=== PATIENT | male | born 1965 | race Caucasian/White ===

== ENCOUNTER 2017-04-05 11:16 | Day surgery (SDC) | payer SELFPAY ==
[2016-04-16 13:02] VITALS: BMI 28.2
[2017-04-05] MEDS ORDERED: Lactated Ringer's 500 ML IV ONE (12:03)
[2017-04-05] MEDS ORDERED: Propofol 10 mg/ml Inj (20 ML) ONE (12:25)
[2017-04-05] MEDS ORDERED: Lidocaine 2% MPF (5 ml) Inj ONE (12:25)
[2017-04-05] MEDS ORDERED: Midazolam 2 MG/2 ML VIAL ONE (12:25)
[2017-04-05 12:52] VITALS: TEMP 97; O2SAT 100
[2017-04-05 13:13] VITALS: BP 128/86; PULSE 70; RESP 18
== END 2017-04-05 13:20 | disposition home or self-care (01) ==
LOC: H.ENDO 11:16
PROVIDERS: ATTEND Internal Medicine Gastroenterology
DX: Z12.11 Encounter for screening for malignant neoplasm of colon (principal); K64.8 Other hemorrhoids
CPT/HCPCS: 45378; J2250; J2704; J7120

== ENCOUNTER 2017-05-03 16:02 | Emergency (ER) | payer OTHER, SELFPAY ==
[2017-05-03 16:02] VITALS: BMI 28.2
[2017-05-03 16:33] VITALS: BP 165/105; PULSE 77; RESP 18; TEMP 97; O2SAT 98
--- NOTE | 2017-05-03 17:29 | ED PDOC ---
HPI: Abdomen Time Seen by Provider: 05/03/17 16:52 Chief Complaint (Nursing): Abdominal Pain Chief Complaint (Provider): Abdominal Pain History Per: Patient History/Exam Limitations: no limitations Onset/Duration Of Symptoms: Days (x3 days) Current Symptoms Are (Timing): Still Present Additional Complaint(s): 51 y/o male presents to the emergency department with a complaint of watery diarrhea that began three days ago, 04/30/2017. Associated with dizziness, abdominal pain, and burning sensation after while urinating. Patient also reports that his fingers always hurt and swell in the morning making it hard for him to move them around. Denies fever, vomiting, blood in urine, or any recent travels. PMD: Dr. Lan Herrera MD Past Medical History Reviewed: Historical Data, Nursing Documentation, Vital Signs Vital Signs: Last Vital Signs Temp 97 F L 05/03/17 16:31 Pulse 77 05/03/17 16:31 Resp 18 05/03/17 16:31 BP 165/105 H 05/03/17 16:31 Pulse Ox 98 05/03/17 17:32 - Medical History PMH: HTN Denies: Chronic Kidney Disease - Surgical History Surgical History: No Surg Hx - Family History Family History: States: Unknown Family Hx - Immunization History Hx Tetanus Toxoid Vaccination: No Hx Influenza Vaccination: No Hx Pneumococcal Vaccination: No - Home Medications Home Medications: Ambulatory Orders Medication Instructions Recorded Lisinopril [Zestril] 10 mg PO DAILY 04/05/17 Meloxicam [Mobic] 15 mg PO DAILY 04/05/17 Omeprazole 40 mg PO DAILY 04/05/17 - Allergies Allergies/Adverse Reactions: Allergies Allergy/AdvReac Type Severity Reaction Status Date / Time Fish Containing Products Allergy VOMITING Verified 04/16/16 13:19 seafood Allergy VOMITING Uncoded 04/16/16 13:08 Review of Systems ROS Statement: Except As Marked, All Systems Reviewed And Found Negative Constitutional: Negative for: Fever Gastrointestinal: Positive for: Abdominal Pain, Diarrhea. Negative for: Vomiting Genitourinary Male: Positive for: Dysuria. Negative for: Hematuria Neurological: Positive for: Dizziness Physical Exam - Reviewed Nursing Documentation Reviewed: Yes Vital Signs Reviewed: Yes - Physical Exam Appears: Positive for: Non-toxic, No Acute Distress Head Exam: Positive for: ATRAUMATIC, NORMAL INSPECTION, NORMOCEPHALIC Skin: Positive for: Normal Color, Warm, Dry Cardiovascular/Chest: Positive for: Regular Rate, Rhythm. Negative for: Murmur Respiratory: Positive for: Normal Breath Sounds. Negative for: Accessory Muscle Use, Respiratory Distress Gastrointestinal/Abdominal: Positive for: Soft, Tenderness (Diffuse tenderness) . Negative for: Normal Exam, Guarding, Rebound Extremity: Positive for: Normal ROM. Negative for: Pedal Edema Neurologic/Psych: Positive for: Alert, Oriented (x3) - Laboratory Results Result Diagrams: 05/03/17 18:03 05/03/17 18:03 - ECG O2 Sat by Pulse Oximetry: 98 (RA) Pulse Ox Interpretation: Normal Medical Decision Making Medical Decision Making: Time: 1702 Initial impression: Diarrhea and abdominal pain Initial plan: --Abd & Pelvis IV Contrast CT --EKG --CMP --Urine DIP --CBC w/ diff --Sodium Chloride 1L IV --Stool Culture --Urinalysis --Reevaluation Scribe Attestation: Documented by Jailene Coy, acting as a scribe for Elsy Kirk MD. Provider Scribe Attestation: All medical record entries made by the Scribe were at my direction and personally dictated by me. I have reviewed the chart and agree that the record accurately reflects my personal performance of the history, physical exam, medical decision making, and the department course for this patient. I have also personally directed, reviewed, and agree with the discharge instructions and disposition. Disposition - Disposition Disposition: Transfer of Care (To Dr. Denise) Disposition Time: 19:00 Condition: STABLE Forms: [employer] (Bengali)
[2017-05-03] MEDS: Sodium Chloride 0.9% 1,000 ML IV STA (18:03)
[2017-05-03 18:12] LABS: BASO % 0.6 % (0.0-2.0); EOS # 0.4 K/uL (0.0-0.7); EOS % 4.5 % (0.0-4.0); HEMATOCRIT 46.5 % (35.0-51.0); LYMPH # 2.4 K/uL (1.0-4.3); LYMPH % 29.9 % (20.0-40.0); MEAN CORPUSCULAR HEMOGLOBIN 28.6 pg (27.0-31.0); MEAN CORPUSCULAR HGB CONC 32.9 g/dL (33.0-37.0); MEAN PLATELET VOLUME 9.8 fl (7.2-11.7); MONO # 0.6 K/uL (0.0-0.8); MONO % 7.3 % (0.0-10.0); NEUT # 4.7 K/uL (1.8-7.0); NEUT % 57.7 % (50.0-75.0); NRBC % 0.1 % (0.0-0.0); RED CELL DISTRIBUTION WIDTH 12.9 % (11.5-14.5); WHITE BLOOD COUNT 8.1 K/uL (4.8-10.8)
[2017-05-03 18:18] LABS: RBC URINE 3 /hpf (0-3); URINE BACTERIA RARE (<OCC); URINE BILIRUBIN NEGATIVE (NEGATIVE); URINE BLOOD NEGATIVE (NEGATIVE); URINE COLOR YELLOW (YELLOW); URINE GLUCOSE (UA) NEG (Normal); URINE KETONE NEGATIVE (NEGATIVE); URINE LEUKOCYTE ESTERASE NEG Leu/uL (Negative); URINE PROTEIN NEGATIVE (NEGATIVE); URINE UROBILINOGEN 0.2-1.0 mg/dL (0.2-1.0); WBC URINE < 1 /hpf (0-5)
[2017-05-03 18:23] LABS: ALKALINE PHOSPHATASE 83 U/L (38-126); ALT/SGPT 54 U/L (21-72); AST/SGOT 38 U/L (17-59); BILIRUBIN,TOTAL 0.5 mg/dl (0.2-1.3); BLOOD UREA NITROGEN 11 mg/dl (9-20); CALCIUM 9.3 mg/dL (8.4-10.2); CARBON DIOXIDE 28 mmol/L (22-30); CHLORIDE 104 mmol/L (98-107); GFR AFRICAN-AMERICAN > 60; GLUCOSE,RANDOM 90 mg/dL (75-110); POTASSIUM 4.4 MMOL/L (3.6-5.0); SODIUM 141 mmol/l (132-148); TOTAL PROTEIN 8.8 G/DL (6.3-8.2)
[2017-05-03 18:27] LABS: ALB/GLOB RATIO 1.1 (1.0-2.1)
[2017-05-03] MEDS ORDERED: Iohexol 300 100 ML IJ ONE (19:00)
[2017-05-03] MEDS ORDERED: Sodium Chloride 0.9% 50 ML IV ONE (19:00)
--- NOTE | 2017-05-03 19:34 | ED PDOC ---
- Laboratory Results Result Diagrams: 05/03/17 18:03 05/03/17 18:03 - ECG O2 Sat by Pulse Oximetry: 98 (RA) Pulse Ox Interpretation: Normal Medical Decision Making Medical Decision Making: Time: 1899 --Patient was endorsed from Dr. Kirk to me. --Pending CT scan and reevaluation. Time: 2021 --Abd/Pelvis CT FINDINGS: Lower thorax: No acute findings. ABDOMEN: Liver: Fatty infiltration. Too small to characterize lesion. Gallbladder and bile ducts: No calcified stones. No ductal dilation. Pancreas: No ductal dilation. No mass. Spleen: No splenomegaly. Adrenals: No mass. Kidneys and ureters: Too small to characterize lesion within RIGHT kidney. No hydronephrosis. Stomach and bowel: Segmental areas of apparent [id number] mural thickening of large bowel with few areas of sparing. No associated inflammatory stranding. No obstruction. Appendix: Normal caliber. No definite inflammation. PELVIS: Bladder: Borderline bladder wall thickening, up to 5 mm. Incomplete distention, limiting evaluation. Reproductive: Unremarkable as visualized. ABDOMEN and PELVIS: Intraperitoneal space: No significant fluid collection. No free air. Bones/joints: Degenerative changes of spine. No acute fracture. Soft tissues: Small inguinal hernias containing fat. Tiny umbilical hernia containing fat. Vasculature: Minimal atherosclerotic disease. No aneurysm. Lymph nodes: Several subcentimeter/few borderline enlarged short axis lymph nodes within pelvis. IMPRESSION: 1. Probable mild colitis. Consider inflammatory or infectious etiologies. 2. Mild cystitis vs underdistention. Correlate with urinalysis. 3. Incidental/non-acute findings are described above. Time: 2053 --Urinalysis is normal. Discharge with antibiotics for mild colitis and outpatient follow up with GI. Upon provider reevaluation patient is feeling better, is medically stable, and requires no further treatment in the ED at this time. Patient will be discharged home with Rx for Cipro 500 mg and Flagyl 500 mg. Counseling was provided and all questions were answered regarding diagnosis and need for follow up with Dr. Dany Jerome MD. There is agreement to discharge plan. Return if symptoms persist or worsen. Clinical Impression: abdominal Pain Scribe Attestation: Documented by Jailene Coy, acting as a scribe for Ric Denise MD. Provider Scribe Attestation: All medical record entries made by the Scribe were at my direction and personally dictated by me. I have reviewed the chart and agree that the record accurately reflects my personal performance of the history, physical exam, medical decision making, and the department course for this patient. I have also personally directed, reviewed, and agree with the discharge instructions and disposition. Disposition Counseled Patient/Family Regarding: Studies Performed, Diagnosis, Need For Followup - Clinical Impression Clinical Impression: Abdominal pain - POA Present On Arrival: None - Disposition Referrals: [facility] [Outside] [facility] [Outside] Justus CLAROS,MD Dany [Medical Doctor] - Disposition: Routine/Home Disposition Time: 20:54 Condition: IMPROVED Additional Instructions: follow up with your primary doctor/GI doctor in 1-2 days return to the ED with any worsening or concerning symptoms. Prescriptions: Ciprofloxacin HCl [Cipro] 500 mg PO BID #20 tab Metronidazole [Flagyl] 500 mg PO TID #30 tablet Instructions: Abdominal Pain (ED) Forms: [facility] (Luxembourger), [facility] ED School/Work Excuse
--- NOTE | 2017-05-03 20:22 | CT ---
EXAM: CT Abdomen and Pelvis With Intravenous Contrast CLINICAL HISTORY: 51 years old, male; Pain and signs and symptoms; Other: Diarrhea; Abdominal pain; Generalized; Additional info: Abd pain, diarrhea. Sent phy. Doc. TECHNIQUE: Axial computed tomography images of the abdomen and pelvis with intravenous contrast. All CT scans at this facility use one or more dose reduction techniques, viz.: automated exposure control; ma/kV adjustment per patient size (including targeted exams where dose is matched to indication; i.e. head); or iterative reconstruction technique. Coronal and sagittal reformatted images were created and reviewed. CONTRAST: 95 mL of [id number] administered intravenously. COMPARISON: No relevant prior studies available. FINDINGS: Lower thorax: No acute findings. ABDOMEN: Liver: Fatty infiltration. Too small to characterize lesion. Gallbladder and bile ducts: No calcified stones. No ductal dilation. Pancreas: No ductal dilation. No mass. Spleen: No splenomegaly. Adrenals: No mass. Kidneys and ureters: Too small to characterize lesion within RIGHT kidney. No hydronephrosis. Stomach and bowel: Segmental areas of apparent mdzb-qh-wusohldi mural thickening of large bowel with few areas of sparing. No associated inflammatory stranding. No obstruction. Appendix: Normal caliber. No definite inflammation. PELVIS: Bladder: Borderline bladder wall thickening, up to 5 mm. Incomplete distention, limiting evaluation. Reproductive: Unremarkable as visualized. ABDOMEN and PELVIS: Intraperitoneal space: No significant fluid collection. No free air. Bones/joints: Degenerative changes of spine. No acute fracture. Soft tissues: Small inguinal hernias containing fat. Tiny umbilical hernia containing fat. Vasculature: Minimal atherosclerotic disease. No aneurysm. Lymph nodes: Several subcentimeter/few borderline enlarged short axis lymph nodes within pelvis. IMPRESSION: 1. Probable mild colitis. Consider inflammatory or infectious etiologies. 2. Mild cystitis vs underdistention. Correlate with urinalysis. 3. Incidental/non-acute findings are described above.
--- NOTE | 2017-05-04 07:43 | CARD ---
APPROVED REPORT EKG Measurement Heart [id number] <Conclusion> Normal sinus rhythm Possible Left atrial enlargement Borderline ECG
== END 2017-05-03 21:24 | disposition home or self-care (01) ==
LOC: H.ER 16:02
DX: K52.9 Noninfective gastroenteritis and colitis, unspecified (principal); I10 Essential (primary) hypertension
CPT/HCPCS: 74177; 80053; 81003; 85025; 87045; 93005; 99282; J7040; Q9967

== ENCOUNTER 2017-10-08 21:05 | Emergency (ER) | payer SELFPAY ==
[2017-10-08 21:06] VITALS: BMI 28.2
[2017-10-08 21:12] VITALS: BP 127/92; PULSE 110; RESP 18; TEMP 99.2; O2SAT 98
--- NOTE | 2017-10-08 22:12 | ED PDOC ---
HPI: Male Pain Additional Complaint(s): 52 YO M w/ PMH of HTN, chronic leg pain presents to the ER with subjective fever , dry cough and chills over the last 3 days. States his roommate in the long term has been coughing up blood and he is concerned that he caught something from him. Has also been having chest pain on coughing which is reproducible on palpation. - States he also has been having burning with urination and having increase frequency. Denies any blood in urine but states his urine is dark in color. - Has been feeling tired for some time and has been getting worked up outpatinet. Has been also having some sore throat. PMH: GERD, Hemorrhoids, leg pain , HTN Allergy: Seafood FH: Mother : HTN SH: Sexually active with woman with inconsistent condom usage. Denies any IV drug use <Shavonne Alatorre - Last Filed: 10/09/17 03:19> <Robert Fong - Last Filed: 10/12/17 19:43> Time Seen by Provider: 10/08/17 21:18 Chief Complaint (Nursing): Male Genitourinary Supervising Attending Note - Attestation: I have personally seen and examined this patient.: Yes I have fully participated in the care of the patient.: Yes I have reviewed all pertinent clinical information, including history, physical exam and plan: Yes - Notes: Notes:: PAtient was found to be HIV + in ER, suprapubic pain and burning upon urination , found to have UTI but negative CT for pyelo, white count of 13. Will treat as outpatient, patient was given referral by HANG Rivera [facility]diomkar for the FP clinic. <Robert Fong - Last Filed: 10/12/17 19:43> Past Medical History Vital Signs: Last Vital Signs Temp 99.2 F 10/08/17 21:08 Pulse 110 H 10/08/17 21:08 Resp 18 10/08/17 21:08 BP 127/92 H 10/08/17 21:08 Pulse Ox 98 10/08/17 21:08 - Medical History PMH: HTN Denies: Chronic Kidney Disease - Family History Family History: States: Unknown Family Hx - Immunization History Hx Tetanus Toxoid Vaccination: No Hx Influenza Vaccination: No Hx Pneumococcal Vaccination: No <Shavonne Alatorre - Last Filed: 10/09/17 03:19> Vital Signs: Last Vital Signs Temp 99.2 F 10/08/17 21:08 Pulse 110 H 10/08/17 21:08 Resp 18 10/08/17 21:08 BP 127/92 H 10/08/17 21:08 Pulse Ox 98 10/09/17 03:19 <Robert Fong - Last Filed: 10/12/17 19:43> - Home Medications Home Medications: Ambulatory Orders Medication Instructions Recorded Lisinopril [Zestril] 10 mg PO DAILY 04/05/17 Meloxicam [Mobic] 15 mg PO DAILY 04/05/17 Omeprazole 40 mg PO DAILY 04/05/17 Ciprofloxacin HCl [Cipro] 500 mg PO BID #20 tab 05/03/17 Metronidazole [Flagyl] 500 mg PO TID #30 tablet 05/03/17 Ciprofloxacin HCl [Cipro] 500 mg PO BID 7 Days tablet 10/09/17 - Allergies Allergies/Adverse Reactions: Allergies Allergy/AdvReac Type Severity Reaction Status Date / Time Fish Containing Products Allergy VOMITING Verified 04/16/16 13:19 seafood Allergy VOMITING Uncoded 04/16/16 13:08 Review of Systems ROS Statement: Except As Marked, All Systems Reviewed And Found Negative <Shavonne Alatorre - Last Filed: 10/09/17 03:19> Physical Exam - Reviewed Nursing Documentation Reviewed: Yes Vital Signs Reviewed: Yes - Physical Exam Appears: Positive for: No Acute Distress Head Exam: Positive for: ATRAUMATIC, NORMAL INSPECTION Skin: Positive for: Normal Color ENT: Negative for: Pharyngeal Erythema Neck: Positive for: Normal Cardiovascular/Chest: Positive for: Regular Rate, Rhythm Respiratory: Positive for: Normal Breath Sounds. Negative for: Rales, Rhonchi, Wheezing Gastrointestinal/Abdominal: Positive for: Tenderness (suprapubic) Back: Positive for: L CVA Tenderness, R CVA Tenderness Lymphatic: Positive for: Other (cervical lymphadenopathy) <Shavonne Alatorre - Last Filed: 10/09/17 03:19> - Laboratory Results Result Diagrams: 10/08/17 22:00 10/08/17 22:00 Urine dip results: Positive for: Nitrate - ECG O2 Sat by Pulse Oximetry: 98 <Shavonne Alatorre - Last Filed: 10/09/17 03:19> - Laboratory Results Result Diagrams: 10/08/17 22:00 10/08/17 22:00 <Robert Fong - Last Filed: 10/12/17 19:43> Medical Decision Making Medical Decision Making: WBC: 13.1 UA: Shows nitrates, many bacteria HIV Rapid screen positive <Shavonne Alatorre - Last Filed: 10/09/17 03:19> Disposition - Patient ED Disposition Is Patient to be Admitted: No - Disposition Disposition: Routine/Home Disposition Time: 02:10 - POA Present On Arrival: None <Shavonne Alatorre - Last Filed: 10/09/17 03:19> <Robert Fong - Last Filed: 10/12/17 19:43> - Clinical Impression Clinical Impression: Urinary tract infection, HIV (human immunodeficiency virus infection) - Disposition Referrals: Lan Herrera MD [Family Provider] - Espinoza Hennessy MD [Staff Provider] - Condition: STABLE Additional Instructions: Patient advised importance of following up with PCP for new diagnosis of HIV. - If symptoms worsen please return to the ER. Advised to have safe sex. Prescriptions: Ciprofloxacin HCl [Cipro] 500 mg PO BID 7 Days tablet Instructions: Urinary Tract Infections in Adults, HIV/AIDS Forms: [facility] (Bhutanese) Print Language: HUNGARIAN
[2017-10-08 22:16] LABS: BASO # 0.1 K/uL (0.0-0.2); BASO % 0.8 % (0.0-2.0); EOS # 0.1 K/uL (0.0-0.7); EOS % 0.4 % (0.0-4.0); HEMOGLOBIN 13.6 g/dL (12.0-18.0); LYMPH # 2.7 K/uL (1.0-4.3); LYMPH % 20.7 % (20.0-40.0); MEAN CELL VOLUME 86.3 fl (80.0-94.0); MEAN CORPUSCULAR HEMOGLOBIN 28.9 pg (27.0-31.0); MEAN CORPUSCULAR HGB CONC 33.4 g/dL (33.0-37.0); MEAN PLATELET VOLUME 9.3 fl (7.2-11.7); MONO # 1.2 K/uL (0.0-0.8); NEUT % 69.1 % (50.0-75.0); RBC 4.71 Mil/uL (4.40-5.90); RED CELL DISTRIBUTION WIDTH 13.5 % (11.5-14.5); WHITE BLOOD COUNT 13.1 K/uL (4.8-10.8)
[2017-10-08 22:30] LABS: ALB/GLOB RATIO 1.1 (1.0-2.1); ALBUMIN 4.3 g/dL (3.5-5.0); ALT/SGPT 40 U/L (21-72); AST/SGOT 30 U/L (17-59); BLOOD UREA NITROGEN 15 mg/dl (9-20); CALCIUM 9.3 mg/dL (8.4-10.2); GFR AFRICAN-AMERICAN > 60; GFR NON-AFRICAN AMERICAN > 60
[2017-10-08 22:44] LABS: SQUAMOUS EPITHIAL < 1 /hpf (0-5); URINE BACTERIA MANY (<OCC); URINE BILIRUBIN NEGATIVE (NEGATIVE); URINE BLOOD NEGATIVE (NEGATIVE); URINE CLARITY SLIGHTY-CLOUDY (Clear); URINE COLOR YELLOW (YELLOW); URINE GLUCOSE (UA) NEG (Normal); URINE LEUKOCYTE ESTERASE MOD Leu/uL (Negative); URINE PROTEIN NEGATIVE (NEGATIVE); URINE UROBILINOGEN 0.2-1.0 mg/dL (0.2-1.0)
[2017-10-08] MEDS ORDERED: Ciprofloxacin 400mg/200ml D5W 400 MG/200 ML BAG IVPB STA (23:29)
[2017-10-08] MEDS ORDERED: Ciprofloxacin 400mg/200ml D5W 400 MG/200 ML BAG IVPB ONE (23:54)
[2017-10-09] MEDS ORDERED: Iohexol 300 100 ML IJ ONE (00:04)
[2017-10-09] MEDS ORDERED: Sodium Chloride 0.9% 100 ML ONE (00:04)
--- NOTE | 2017-10-09 01:34 | CT ---
EXAM: CT Abdomen and Pelvis With Intravenous Contrast CLINICAL HISTORY: 52 years old, male; Signs and symptoms; Fever and other: Fever/cough R/O pyelo TECHNIQUE: Axial computed tomography images of the abdomen and pelvis with intravenous contrast. All CT scans at this facility use one or more dose reduction techniques, viz.: automated exposure control; ma/kV adjustment per patient size (including targeted exams where dose is matched to indication; i.e. head); or iterative reconstruction technique. Coronal and sagittal reformatted images were created and reviewed. CONTRAST: 95 mL of omnipaque administered intravenously. COMPARISON: CT - ABD PELVIS IV CONTRAST ONLY 2017-05-03 19:18 FINDINGS: Lung bases: No acute findings. ABDOMEN: Liver: Fatty infiltration. 0.6 cm low-attenuation lesion, stable. Gallbladder and bile ducts: No calcified stones. No ductal dilation. Pancreas: No ductal dilation. No mass. Spleen: No splenomegaly. Adrenals: No mass. Kidneys and ureters: Too small to characterize lesion within RIGHT kidney. No hydronephrosis. Stomach and bowel: No definite mural thickening. No obstruction. PELVIS: Appendix: No findings to suggest acute appendicitis. Bladder: Unremarkable. Reproductive: Unremarkable as visualized. ABDOMEN and PELVIS: Intraperitoneal space: No significant fluid collection. No free air. Bones/joints: Degenerative changes of spine. No acute fracture. Soft tissues: Tiny umbilical hernia containing fat. Small inguinal hernias containing fat. Vasculature: Minimal atherosclerotic disease of aorta. No aneurysm. Lymph nodes: Few subcentimeter/borderline enlarged short axis lymph nodes within pelvis, stable. IMPRESSION: 1. No definite acute intraabdominal abnormality. 2. Incidental/non-acute findings are described above.
--- NOTE | 2017-10-09 09:29 | RAD ---
HISTORY: COMPARISON: 04/02/2015. TECHNIQUE: Chest PA and lateral FINDINGS: LINES AND TUBES: None. LUNG AND PLEURA: The lungs are well inflated and clear. There are no pleural effusions or pneumothorax. HEART AND MEDIASTINUM: The heart is not enlarged. The hilar and mediastinal contours are within normal limits. SKELETAL STRUCTURES: The bony structures are within normal limits for the patient's age. VISUALIZED UPPER ABDOMEN: Normal. OTHER FINDINGS: None. IMPRESSION: No active pulmonary disease.
== END 2017-10-09 03:14 | disposition home or self-care (01) ==
LOC: H.ER 21:05
DX: N39.0 Urinary tract infection, site not specified (principal); B20 Human immunodeficiency virus [HIV] disease; G89.29 Other chronic pain; I10 Essential (primary) hypertension; K21.9 Gastro-esophageal reflux disease without esophagitis; M79.606 Pain in leg, unspecified
CPT/HCPCS: 71046; 74177; 80053; 81003; 85025; 86703; 87086; 87181; 87390; 87804; 96374; 99284; J1885; Q9967

== ENCOUNTER 2017-10-29 12:14 | Emergency (ER) | payer SELFPAY ==
[2017-10-29 12:14] VITALS: BMI 28.2
[2017-10-29] MEDS ORDERED: Albuterol-Ipratrop 3 mg / 0.5 (3 ml) UD IH STA (12:35)
--- NOTE | 2017-10-29 12:49 | ED PDOC ---
HPI: SOB/CHF/COPD Time Seen by Provider: 10/29/17 12:22 Chief Complaint (Nursing): Cough, Cold, Congestion Chief Complaint (Provider): Cough History Per: Patient History/Exam Limitations: no limitations Current Symptoms Are (Timing): Still Present Additional Complaint(s): Pt. with cough, nasal congestion, body aches, green phlegm. Dyspnea with the cough. No weakness. No chest pain, headaches, dizziness, neck pain. No fever. Did not take any meds for it. Ongoing for 2 weeks. No abd pain. Past Medical History Reviewed: Nursing Documentation, Vital Signs Vital Signs: Last Vital Signs Temp 98 F 10/29/17 12:19 Pulse 113 H 10/29/17 12:19 Resp 16 10/29/17 12:19 BP 114/76 10/29/17 12:19 Pulse Ox 98 10/29/17 13:39 - Medical History PMH: HTN Denies: Chronic Kidney Disease - Surgical History Surgical History: No Surg Hx - Family History Family History: States: Unknown Family Hx - Living Arrangements Living Arrangements: With Family - Social History Current smoker - smoking cessation education provided: No - Immunization History Hx Tetanus Toxoid Vaccination: No Hx Influenza Vaccination: No Hx Pneumococcal Vaccination: No - Home Medications Home Medications: Ambulatory Orders Medication Instructions Recorded Lisinopril [Zestril] 10 mg PO DAILY 04/05/17 Meloxicam [Mobic] 15 mg PO DAILY 04/05/17 Omeprazole 40 mg PO DAILY 04/05/17 Ciprofloxacin HCl [Cipro] 500 mg PO BID #20 tab 05/03/17 Metronidazole [Flagyl] 500 mg PO TID #30 tablet 05/03/17 Ciprofloxacin HCl [Cipro] 500 mg PO BID 7 Days tablet 10/09/17 Albuterol Sulfate [Proair Hfa] 0.09 mg IH Q6H PRN #2 inh 10/29/17 Azithromycin [Zithromax] 250 mg PO DAILY 5 Days tab 10/29/17 Benzonatate [Tessalon Perles] 100 mg PO BID PRN 5 Days sgl 10/29/17 Ibuprofen [Motrin] 600 mg PO TID 7 Days tab 10/29/17 - Allergies Allergies/Adverse Reactions: Allergies Allergy/AdvReac Type Severity Reaction Status Date / Time Fish Containing Products Allergy VOMITING Verified 04/16/16 13:19 seafood Allergy VOMITING Uncoded 04/16/16 13:08 Review of Systems ROS Statement: Except As Marked, All Systems Reviewed And Found Negative ENT: Positive for: Nose Pain, Nose Discharge, Nose Congestion Respiratory: Positive for: Cough, Shortness of Breath, Sputum Musculoskeletal: Positive for: Other (body aches) Neurological: Negative for: Weakness, Numbness, Confusion, Headache, Dizziness Physical Exam - Reviewed Nursing Documentation Reviewed: Yes Vital Signs Reviewed: Yes - Physical Exam Appears: Positive for: Non-toxic, No Acute Distress Head Exam: Positive for: ATRAUMATIC, NORMAL INSPECTION, NORMOCEPHALIC Skin: Positive for: Normal Color, Warm, DRY Eye Exam: Positive for: EOMI, Normal appearance, PERRL ENT: Positive for: Nasal Congestion. Negative for: Pharyngeal Erythema, Tonsillar Exudate Neck: Positive for: Normal, Painless ROM, Supple Cardiovascular/Chest: Positive for: Regular Rate, Rhythm. Negative for: Edema Respiratory: Positive for: Normal Breath Sounds. Negative for: Accessory Muscle Use, Wheezing Gastrointestinal/Abdominal: Positive for: Normal Exam, Soft Back: Positive for: Normal Inspection. Negative for: L CVA Tenderness, R CVA Tenderness Extremity: Positive for: Normal ROM. Negative for: Tenderness, Pedal Edema Neurologic/Psych: Positive for: Alert, mac developer II-XII, Oriented. Negative for: Motor/Sensory Deficits - ECG ECG: Positive for: Interpreted By Me, Viewed By Me ECG Rhythm: Positive for: Normal QRS, Normal ST Segment, Sinus Rhythm O2 Sat by Pulse Oximetry: 98 Pulse Ox Interpretation: Normal - Radiology X-Ray: Read By Radiologist X-Ray Interpretation: No Acute Disease - Progress ED Course And Treament: 1506: Stable. AAOx3. Feels better. Fu with pcp. Disposition - Clinical Impression Clinical Impression: URI (upper respiratory infection) - Patient ED Disposition Is Patient to be Admitted: No Counseled Patient/Family Regarding: Studies Performed, Diagnosis, Need For Followup, Rx Given - Disposition Referrals: [facility] [Outside] - 10/31/17 Disposition: Routine/Home Disposition Time: 15:07 Condition: STABLE Additional Instructions: Return if not better in 3 days. Prescriptions: Albuterol Sulfate [Proair Hfa] 0.09 mg IH Q6H PRN #2 inh PRN Reason: Wheezing Azithromycin [Zithromax] 250 mg PO DAILY 5 Days tab Benzonatate [Tessalon Perles] 100 mg PO BID PRN 5 Days sgl PRN Reason: Cough Ibuprofen [Motrin] 600 mg PO TID 7 Days tab Instructions: Viral Upper Respiratory Infection, Adult (DC)
[2017-10-29] MEDS ORDERED: Albuterol-Ipratrop 3 mg / 0.5 (3 ml) UD ONE (13:25)
--- NOTE | 2017-10-29 14:02 | RAD ---
HISTORY: dyspnea COMPARISON: 10/08/2017 TECHNIQUE: Chest PA and lateral FINDINGS: LUNGS: No active pulmonary disease. PLEURA: No significant pleural effusion identified. No pneumothorax apparent. CARDIOVASCULAR: Normal. OSSEOUS STRUCTURES: Old healed fracture right 6th rib laterally. VISUALIZED UPPER ABDOMEN: Normal. OTHER FINDINGS: None. IMPRESSION: No active disease.
--- NOTE | 2017-10-29 17:36 | CARD ---
APPROVED REPORT EKG Measurement Heart [id number] <Conclusion> Normal sinus rhythm Normal ECG
[2017-10-29 18:00] VITALS: BP 120/65; PULSE 89; RESP 15; TEMP 98.1; O2SAT 97
== END 2017-10-29 17:59 | disposition home or self-care (01) ==
LOC: H.ER 12:14
DX: J06.9 Acute upper respiratory infection, unspecified (principal)
CPT/HCPCS: 71046; 93005; 96372; 99282; J1885

== ENCOUNTER 2017-10-31 22:09 | Emergency (ER) | payer SELFPAY ==
[2017-10-31 22:26] VITALS: TEMP 98.5; BMI 30.7
[2017-10-31 22:27] VITALS: BP 128/88; PULSE 88; RESP 20; O2SAT 99
[2017-10-31] MEDS ORDERED: Ciprofloxacin 0.3% OPTH SOLN OD STA (23:18)
--- NOTE | 2017-10-31 23:21 | ED PDOC ---
HPI: Eye Injury/Pain Time Seen by Provider: 10/31/17 23:18 Chief Complaint (Nursing): Eye Problem Chief Complaint (Provider): eye discharge History Per: Patient (52 y/o male undomiciled here with bilateral eye pain/ discharge noted initially in left eye and now in right eye. Patient denies any ill contacts.) Past Medical History Reviewed: Historical Data, Nursing Documentation, Vital Signs Vital Signs: Last Vital Signs Temp 98.5 F 10/31/17 22:26 Pulse 88 10/31/17 22:26 Resp 20 10/31/17 22:26 BP 128/88 10/31/17 22:26 Pulse Ox 99 10/31/17 22:26 - Medical History PMH: HTN Denies: Chronic Kidney Disease - Family History Family History: States: Unknown Family Hx - Immunization History Hx Tetanus Toxoid Vaccination: No Hx Influenza Vaccination: No Hx Pneumococcal Vaccination: No - Home Medications Home Medications: Ambulatory Orders Medication Instructions Recorded Lisinopril [Zestril] 10 mg PO DAILY 04/05/17 Meloxicam [Mobic] 15 mg PO DAILY 04/05/17 Omeprazole 40 mg PO DAILY 04/05/17 Ciprofloxacin HCl [Cipro] 500 mg PO BID #20 tab 05/03/17 Metronidazole [Flagyl] 500 mg PO TID #30 tablet 05/03/17 Ciprofloxacin HCl [Cipro] 500 mg PO BID 7 Days tablet 10/09/17 Albuterol Sulfate [Proair Hfa] 0.09 mg IH Q6H PRN #2 inh 10/29/17 Azithromycin [Zithromax] 250 mg PO DAILY 5 Days tab 10/29/17 Benzonatate [Tessalon Perles] 100 mg PO BID PRN 5 Days sgl 10/29/17 Ibuprofen [Motrin] 600 mg PO TID 7 Days tab 10/29/17 Ciprofloxacin 0.3% [Ciloxan 0.3% 1 drop OU QID #1 bottle 10/31/17 Madeleine LUCERO] - Allergies Allergies/Adverse Reactions: Allergies Allergy/AdvReac Type Severity Reaction Status Date / Time Fish Containing Products Allergy VOMITING Verified 10/31/17 22:24 seafood Allergy VOMITING Uncoded 10/31/17 22:24 Review of Systems ROS Statement: Except As Marked, All Systems Reviewed And Found Negative Physical Exam - Reviewed Nursing Documentation Reviewed: Yes Vital Signs Reviewed: Yes - Physical Exam Appears: Positive for: Well, Non-toxic, No Acute Distress Head Exam: Positive for: ATRAUMATIC, NORMAL INSPECTION, NORMOCEPHALIC Skin: Positive for: Normal Color, Warm, DRY Eye Exam: Positive for: EOMI, PERRL, Conjunctival injection (bilateral conjunctival injection. moderate prululent discharge noted left eye. No fluorescein uptake noted in both eyes.). Negative for: Normal appearance ENT: Positive for: Normal ENT Inspection Neck: Positive for: Normal, Painless ROM Cardiovascular/Chest: Positive for: Regular Rate, Rhythm Respiratory: Positive for: CNT, Normal Breath Sounds Gastrointestinal/Abdominal: Positive for: Normal Exam, Soft Back: Positive for: Normal Inspection Extremity: Positive for: Normal ROM Neurologic/Psych: Positive for: Alert, Oriented - ECG O2 Sat by Pulse Oximetry: 99 - Progress ED Course And Treament: ciloxan eye drops ordered for both eyes today. Disposition - Clinical Impression Clinical Impression: Conjunctivitis - Patient ED Disposition Is Patient to be Admitted: No - Disposition Referrals: Asif Contreras MD [Staff Provider] - Disposition: Routine/Home Disposition Time: 23:20 Condition: FAIR Prescriptions: Ciprofloxacin 0.3% [Ciloxan 0.3% Ophth SOLN] 1 drop OU QID #1 bottle Instructions: Conjunctivitis ([place]) (CHRISTOPHER)
== END 2017-10-31 23:32 | disposition home or self-care (01) ==
LOC: H.ER 22:09
DX: H10.9 Unspecified conjunctivitis (principal); I10 Essential (primary) hypertension

== ENCOUNTER 2018-01-13 08:34 | Emergency (ER) | payer SELFPAY ==
[2018-01-13 08:34] VITALS: BMI 30.7
[2018-01-13 08:44] VITALS: BP 143/92; PULSE 67; RESP 16; TEMP 98.3; O2SAT 98
--- NOTE | 2018-01-13 09:20 | ED PDOC ---
Lower Extremity Pain/Injury Time Seen by Provider: 01/13/18 09:10 Chief Complaint (Nursing): Lower Extremity Problem/Injury Chief Complaint (Provider): right foot pain History Per: Patient History/Exam Limitations: no limitations Onset/Duration Of Symptoms: Days (x2 months) Current Symptoms Are (Timing): Still Present Additional Complaint(s): Cyril Amaya is a 52 year old male, with a past medical history of HTN, who presents to the emergency department complaining of right foot pain onset for x2 months. Patient states pain is worst with ambulation. He reports temporary improvement with motrin but recurs after x3 hrs. Patient denies any trauma, injury, fever or chills. No further medical complaints. PMD: Lan Herrera Past Medical History Reviewed: Historical Data, Nursing Documentation, Vital Signs Vital Signs: Last Vital Signs Temp 98.3 F 01/13/18 08:43 Pulse 67 01/13/18 08:43 Resp 16 01/13/18 08:43 BP 143/92 H 01/13/18 08:43 Pulse Ox 98 01/13/18 08:43 - Medical History PMH: HTN Denies: Chronic Kidney Disease - Surgical History Surgical History: No Surg Hx - Family History Family History: States: Unknown Family Hx - Social History Current smoker - smoking cessation education provided: No Alcohol: None Drugs: Denies - Immunization History Hx Tetanus Toxoid Vaccination: No Hx Influenza Vaccination: No Hx Pneumococcal Vaccination: No - Home Medications Home Medications: Ambulatory Orders Medication Instructions Recorded Lisinopril [Zestril] 10 mg PO DAILY 04/05/17 Meloxicam [Mobic] 15 mg PO DAILY 04/05/17 Omeprazole 40 mg PO DAILY 04/05/17 Ciprofloxacin HCl [Cipro] 500 mg PO BID #20 tab 05/03/17 Metronidazole [Flagyl] 500 mg PO TID #30 tablet 05/03/17 Ciprofloxacin HCl [Cipro] 500 mg PO BID 7 Days tablet 10/09/17 Albuterol Sulfate [Proair Hfa] 0.09 mg IH Q6H PRN #2 inh 10/29/17 Azithromycin [Zithromax] 250 mg PO DAILY 5 Days tab 10/29/17 Benzonatate [Tessalon Perles] 100 mg PO BID PRN 5 Days sgl 10/29/17 Ibuprofen [Motrin] 600 mg PO TID 7 Days tab 10/29/17 Ciprofloxacin 0.3% [Ciloxan 0.3% 1 drop OU QID #1 bottle 10/31/17 Ophth SOLN] traMADol [Ultram] 50 mg PO Q8 #10 tab 01/13/18 - Allergies Allergies/Adverse Reactions: Allergies Allergy/AdvReac Type Severity Reaction Status Date / Time Fish Containing Products Allergy VOMITING Verified 01/13/18 08:51 seafood Allergy VOMITING Uncoded 10/31/17 22:24 Review of Systems ROS Statement: Except As Marked, All Systems Reviewed And Found Negative Constitutional: Negative for: Fever, Chills Musculoskeletal: Positive for: Foot Pain (right) Physical Exam - Reviewed Nursing Documentation Reviewed: Yes Vital Signs Reviewed: Yes - Physical Exam Appears: Positive for: Non-toxic, No Acute Distress Head Exam: Positive for: ATRAUMATIC, NORMAL INSPECTION, NORMOCEPHALIC Skin: Positive for: Normal Color, Warm, Dry. Negative for: Rash (right foot) Eye Exam: Positive for: Normal appearance, EOMI, PERRL Neck: Positive for: Painless ROM Extremity: Positive for: Normal ROM (upper and lower extremities), Tenderness ( to dorsum of 2nd and 3rd metatarsal area. No erythema). Negative for: Deformity (right foot), Swelling (right foot) Neurologic/Psych: Positive for: Alert, Oriented. Negative for: Motor/Sensory Deficits (no focal deficits) - Laboratory Results Result Diagrams: 01/13/18 09:34 01/13/18 09:34 - ECG O2 Sat by Pulse Oximetry: 98 (RA) Pulse Ox Interpretation: Normal Medical Decision Making Medical Decision Making: Time: 09:10 Initial Plan: --CMP --Uric acid --CBC w/ differential --Foot right 3 views routine [RAD] --Reevaluation ----- Scribe Attestation: Documented by Riley Sharpe, acting as a scribe for Mravin Alberto MD. Provider Scribe Attestation: All medical record entries made by the Kaitlyn were at my direction and personally dictated by me. I have reviewed the chart and agree that the record accurately reflects my personal performance of the history, physical exam, medical decision making, and the department course for this patient. I have also personally directed, reviewed, and agree with the discharge instructions and disposition. Disposition - Clinical Impression Clinical Impression: Foot sprain - Patient ED Disposition Is Patient to be Admitted: No Counseled Patient/Family Regarding: Studies Performed, Diagnosis, Need For Followup, Rx Given - Disposition Referrals: Podiatry Clinic [Outside] Disposition: Routine/Home Disposition Time: 14:14 Condition: FAIR Prescriptions: traMADol [Ultram] 50 mg PO Q8 #10 tab Instructions: Foot Sprain (DC) Forms: [facility] (Lao)
[2018-01-13 09:38] LABS: BASO % 0.6 % (0.0-2.0); EOS # 0.2 K/uL (0.0-0.7); EOS % 3.3 % (0.0-4.0); HEMOGLOBIN 13.4 g/dL (12.0-18.0); LYMPH # 2.4 K/uL (1.0-4.3); LYMPH % 39.9 % (20.0-40.0); MEAN CORPUSCULAR HEMOGLOBIN 29.2 pg (27.0-31.0); MEAN CORPUSCULAR HGB CONC 33.6 g/dL (33.0-37.0); MEAN PLATELET VOLUME 8.9 fl (7.2-11.7); MONO # 0.6 K/uL (0.0-0.8); MONO % 9.4 % (0.0-10.0); NEUT # 2.8 K/uL (1.8-7.0); NEUT % 46.8 % (50.0-75.0); NRBC % 0.1 % (0.0-0.0); RBC 4.58 Mil/uL (4.40-5.90); RED CELL DISTRIBUTION WIDTH 14.5 % (11.5-14.5); WHITE BLOOD COUNT 5.9 K/uL (4.8-10.8)
[2018-01-13 09:48] LABS: ALB/GLOB RATIO 1.1 (1.0-2.1); ALT/SGPT 34 U/L (21-72); AST/SGOT 30 U/L (17-59); BLOOD UREA NITROGEN 17 mg/dl (9-20); CALCIUM 9.1 mg/dL (8.4-10.2); GFR AFRICAN-AMERICAN > 60; GFR NON-AFRICAN AMERICAN > 60; URIC ACID 6.1 mg/Dl (3.5-8.5)
--- NOTE | 2018-01-13 12:50 | RAD ---
Date of service: 01/13/2018 PROCEDURE: Right Foot Radiographs. HISTORY: Pain. No history of recent/ related trauma provided COMPARISON: None. FINDINGS: BONES: Normal. No fracture. JOINTS: Normal. SOFT TISSUES: Normal. OTHER FINDINGS: None. IMPRESSION: Normal right foot radiographs.
--- NOTE | 2018-01-13 16:13 | CP.PCM.CON ---
History of Present Illness - History of Present Illness History of Present Illness: Podiatry Consult Note for Dr. Gotti: Patient is a 52 yo male who was seen and evaluated in the ED for right foot pain. Patient notes that the pain began two months ago, however denies any trauma or incidences that could have contributed to the pain. Patient rates the pain 6/10 and worse when ambulating. Occasionally, his right foot swells, however today it hasn't. The pain gets better when he takes over the counter pain medication. Denies any other pedal complaintsPatient denies N/V/F/SOB/CP/ C. PMHx: HTN ALL: Seafood Review of Systems - Review of Systems Review of Systems: As per HPI Past Patient History - Past Medical History & Family History Past Medical History?: Yes - Past Social History Alcohol: None Drugs: Denies - CARDIAC Hx Hypertension: Yes - PULMONARY Hx Respiratory Disorders: No - NEUROLOGICAL Hx Neurological Disorder: No - HEENT Hx HEENT Problems: No - RENAL Hx Chronic Kidney Disease: No - ENDOCRINE/METABOLIC Hx Endocrine Disorders: No - HEMATOLOGICAL/ONCOLOGICAL Hx Blood Disorders: No - INTEGUMENTARY Hx Dermatological Problems: No - MUSCULOSKELETAL/RHEUMATOLOGICAL Hx Musculoskeletal Disorders: No - GASTROINTESTINAL Hx Gastrointestinal Disorders: No - GENITOURINARY/GYNECOLOGICAL Hx Genitourinary Disorders: No - PSYCHIATRIC Hx Psychophysiologic Disorder: No Hx Emotional Abuse: No Hx Physical Abuse: No Hx Substance Use: No - SURGICAL HISTORY Hx Surgeries: No - ANESTHESIA Hx Anesthesia: No Meds Home Medications: Home Medication List Medication Instructions Recorded Confirmed Type traMADol [Ultram] 50 mg PO Q8 #10 tab 01/13/18 Rx Allergies/Adverse Reactions: Allergies Allergy/AdvReac Type Severity Reaction Status Date / Time Fish Containing Products Allergy VOMITING Verified 01/13/18 08:51 seafood Allergy VOMITING Uncoded 10/31/17 22:24 Physical Exam - Constitutional Appears: Well, Non-toxic, No Acute Distress - Head Exam Head Exam: ATRAUMATIC, NORMOCEPHALIC - Extremities Exam Additional comments: RLE focused exam: Vascular: DP/PT 2/4, CFT <3 seconds to digits x5, TG WNL, no edema noted to right foot Ortho: Pain upon palpation to the dorsal aspect of the right foot, MMT 5/5, No pain upon active or passive plantarflexion, dorsiflexion, inversion, or eversion. No pain with calf compression Neuro: Gross and protective sensation intact Derm: No open lesions, no erythema, no clinical signs of infection - Neurological Exam Neurological exam: Alert, Oriented x3 - Psychiatric Exam Psychiatric exam: Normal Affect, Normal Mood Results - Vital Signs Recent Vital Signs: Last Vital Signs Temp 98.3 F 01/13/18 08:43 Pulse 67 01/13/18 08:43 Resp 16 01/13/18 08:43 BP 143/92 H 01/13/18 08:43 Pulse Ox 98 01/13/18 14:14 - Labs Result Diagrams: 01/13/18 09:34 01/13/18 09:34 Labs: Laboratory Results - last 24 hr 01/13/18 01/13/18 09:34 09:34 WBC 5.9 D RBC 4.58 Hgb 13.4 Hct 39.8 MCV 87.0 MCH 29.2 MCHC 33.6 RDW 14.5 Plt Count 225 MPV 8.9 Neut % (Auto) 46.8 L Lymph % (Auto) 39.9 [place] % (Auto) 9.4 Eos % (Auto) 3.3 Baso % (Auto) 0.6 Neut # (Auto) 2.8 Lymph # (Auto) 2.4 [place] # (Auto) 0.6 Eos # (Auto) 0.2 Baso # (Auto) 0.0 Sodium 141 Potassium 4.1 Chloride 106 Carbon Dioxide 27 Anion Gap 12 BUN 17 Creatinine 0.7 L Est GFR ( Amer) > 60 Est GFR (Non-Af Amer) > 60 Random Glucose 105 Uric Acid 6.1 Calcium 9.1 Total Bilirubin 0.4 AST 30 ALT 34 Alkaline Phosphatase 58 Total Protein 7.6 Albumin 4.0 Globulin 3.5 Albumin/Globulin Ratio 1.1 Assessment & Plan - Assessment and Plan (Free Text) Assessment: Patient is a 52 yo male who was seen and evaluated in the ED for right dosal foot pain. Plan: Patient was seen and evaluated at beside in the ED Plan discussed in detail with Dr. Gotti Labs and vitals reviewed; afebrile, absent leukocytosis Right foot x-rays reviewed; no osseous abnormalities, no evidence of fracture UMESH wrap applied to right foot for compression/future edema control Discussed conservative options with the patient; advised patient to rest, Ice and elevate right lower extremity F/U at Dr. Gtoti's office or clinic for further examination with possible MRI Thank you for the consult - Date & Time Date: 01/13/18
== END 2018-01-13 15:06 | disposition home or self-care (01) ==
LOC: H.ER 08:34
DX: M79.671 Pain in right foot (principal); I10 Essential (primary) hypertension

== ENCOUNTER 2018-08-25 11:20 | Emergency (ER) | payer OTHER, SELFPAY ==
[2018-08-25 11:20] VITALS: BMI 30.7
[2018-08-25 11:46] VITALS: BP 117/75; PULSE 80; RESP 18; TEMP 98.2; O2SAT 97
--- NOTE | 2018-08-25 13:43 | ED PDOC ---
HPI: Back Time Seen by Provider: 08/25/18 12:15 Chief Complaint (Nursing): Back Pain Chief Complaint (Provider): back pain History Per: Patient History/Exam Limitations: no limitations Additional Complaint(s): 53 y/o M with hx of HTN who presents with mid lower back pain x 3 weeks. Pt states that he began having mid lower back pain that began gradually 3 weeks ago. He has been taking Meloxicam with improvement in pain but ran out. He has not taken anything in the past week and a half. Denies fever, chills, night sweats, trauma or fall. He has been having some tingling in left leg down to foot, pain is worse with bending down. 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 Past Medical History Vital Signs: Last Vital Signs Temp 98.2 F 08/25/18 11:43 Pulse 80 08/25/18 11:43 Resp 18 08/25/18 11:43 BP 117/75 08/25/18 11:43 Pulse Ox 97 08/25/18 11:43 - Medical History PMH: HIV, HTN Denies: Chronic Kidney Disease - Family History Family History: States: Unknown Family Hx - Immunization History Hx Tetanus Toxoid Vaccination: No Hx Influenza Vaccination: No Hx Pneumococcal Vaccination: No - Home Medications Home Medications: Ambulatory Orders Medication Instructions Recorded Lisinopril [Zestril] 10 mg PO DAILY 04/05/17 Meloxicam [Mobic] 15 mg PO DAILY 04/05/17 Omeprazole 40 mg PO DAILY 04/05/17 Ciprofloxacin HCl [Cipro] 500 mg PO BID #20 tab 05/03/17 Metronidazole [Flagyl] 500 mg PO TID #30 tablet 05/03/17 Ciprofloxacin HCl [Cipro] 500 mg PO BID 7 Days tablet 10/09/17 Albuterol Sulfate [Proair Hfa] 0.09 mg IH Q6H PRN #2 inh 10/29/17 Azithromycin [Zithromax] 250 mg PO DAILY 5 Days tab 10/29/17 Benzonatate [Tessalon Perles] 100 mg PO BID PRN 5 Days sgl 10/29/17 Ibuprofen [Motrin] 600 mg PO TID 7 Days tab 10/29/17 Ciprofloxacin 0.3% [Ciloxan 0.3% 1 drop OU QID #1 bottle 10/31/17 Ophth SOLN] traMADol [Ultram] 50 mg PO Q8 #10 tab 01/13/18 Cyclobenzaprine [Cyclobenzaprine 10 mg PO Q8 PRN 7 Days tab 08/25/18 HCl] Meloxicam 15 mg PO DAILY PRN 7 Days tablet 08/25/18 - Allergies Allergies/Adverse Reactions: Allergies Allergy/AdvReac Type Severity Reaction Status Date / Time Fish Containing Products Allergy VOMITING Verified 01/13/18 08:51 seafood Allergy VOMITING Uncoded 10/31/17 22:24 Review of Systems Constitutional: Negative for: Fever, Chills Genitourinary Male: Negative for: Dysuria (occasional), Incontinence Musculoskeletal: Positive for: Back Pain. Negative for: Neck Pain Neurological: Negative for: Weakness, Numbness Physical Exam - Reviewed Nursing Documentation Reviewed: Yes Vital Signs Reviewed: Yes - Physical Exam Appears: Positive for: Non-toxic Skin: Positive for: Normal Color Neck: Positive for: Painless ROM, Supple Back: Positive for: Normal Inspection, Vertebral Tenderness (mid back), Decreased ROM (flexion of back and flexion at left hip. ). Negative for: L CVA Tenderness, R CVA Tenderness, Muscle Spasm Extremity: Positive for: Normal ROM (with flexion and extension of B/L feet) Neurological/Psych: Positive for: Awake, Alert, Oriented, Gait (steady). Negative for: Motor/Sensory Deficits - ECG O2 Sat by Pulse Oximetry: 97 Medical Decision Making Medical Decision Making: Urine dip Toradol 30mg IM x 1 Flexeril 10mg PO x 1 Re-evaluation: 14:00: feeling better but still with some pain. Patient advised to take medications regularly for the next couple of days and to follow up with PMD for further evaluation if pain persists. Disposition - Clinical Impression Clinical Impression: Mid back pain, Back pain, Low back pain - Patient ED Disposition Is Patient to be Admitted: No Counseled Patient/Family Regarding: Studies Performed, Diagnosis, Need For Followup - Disposition Referrals: [facility] [place] [Outside] Disposition: Routine/Home Disposition Time: 14:21 Condition: STABLE Additional Instructions: Follow up with your primary care doctor if your pain persists for medication adjustment. Take Meloxicam and Cyclobenzaprine for pain. Avoid taking Cyclobenzaprine if you will be driving or operating heavy machinery as it may make you sleepy. Return to ER if you have worsening numbness or weakness in your foot or develop fevers. Prescriptions: Cyclobenzaprine [Cyclobenzaprine HCl] 10 mg PO Q8 PRN 7 Days tab PRN Reason: Muscle Spasm Meloxicam 15 mg PO DAILY PRN 7 Days tablet PRN Reason: Pain, Moderate (4-7) Instructions: Low Back Pain (DC) Forms: [facility] (American) Print Language: INDIAN
== END 2018-08-25 14:21 | disposition home or self-care (01) ==
LOC: H.ER 11:20
DX: M54.5 Low back pain (principal); I10 Essential (primary) hypertension
CPT/HCPCS: 96372; 99283; J1885

== ENCOUNTER 2018-09-08 10:34 | Emergency (ER) | payer OTHER, SELFPAY ==
[2018-09-08 10:46] VITALS: BMI 30.2
[2018-09-08 13:15] LABS: BASO % 0.5 % (0.0-2.0); EOS # 0.4 K/uL (0.0-0.7); EOS % 6.8 % (0.0-4.0); HEMOGLOBIN 15.2 g/dL (12.0-18.0); LYMPH % 31.8 % (20.0-40.0); MEAN CELL VOLUME 89.3 fl (80.0-94.0); MEAN CORPUSCULAR HEMOGLOBIN 30.5 pg (27.0-31.0); MEAN CORPUSCULAR HGB CONC 34.2 g/dL (33.0-37.0); MEAN PLATELET VOLUME 9.2 fl (7.2-11.7); MONO # 0.7 K/uL (0.0-0.8); MONO % 11.3 % (0.0-10.0); NEUT # 3.2 K/uL (1.8-7.0); NEUT % 49.6 % (50.0-75.0); RBC 4.98 Mil/uL (4.40-5.90); WHITE BLOOD COUNT 6.3 K/uL (4.8-10.8)
[2018-09-08 13:27] LABS: BLOOD UREA NITROGEN 16 mg/dl (9-20); CALCIUM 9.4 mg/dL (8.4-10.2); GFR NON-AFRICAN AMERICAN > 60
[2018-09-08 13:28] LABS: ALB/GLOB RATIO 1.1 (1.0-2.1); ALBUMIN 4.4 g/dL (3.5-5.0); ALT/SGPT 42 U/L (21-72); AST/SGOT 55 U/L (17-59)
[2018-09-08] MEDS ORDERED: DiphenhydrAMINE 50 mg/ml Inj IVP STA (14:40)
[2018-09-08] MEDS ORDERED: DiphenhydrAMINE 50 mg/ml Inj ONE (14:54)
[2018-09-08 15:15] VITALS: RESP 18; O2SAT 100
--- NOTE | 2018-09-08 15:30 | ED PDOC ---
HPI: General Adult Time Seen by Provider: 09/08/18 12:10 Chief Complaint (Nursing): Abnormal Skin Integrity Chief Complaint (Provider): Rash History Per: Patient History/Exam Limitations: no limitations Onset/Duration Of Symptoms: Days Have you had recent travel within the past 21 days to any of the following countries: [place], [place], [place] or [place]?: No Current Symptoms Are (Timing): Still Present Severity: Mild Pain Scale Rating Of: 4 Location: left neck Quality: itchiness, painful rash to neck Additional History Per: Family Additional Complaint(s): 53 y/o male presents to the ED with rash to the left side of the neck rad to shoulder and anterior aspect of the chest. Pt reports he went to bed 4 nights ago and in the am woke up with scab like lesions to the neck, days after pt states rash spread to left shoulder. He states rash is itchy and has "burning" sensation. Pt states having chills, denies fever, bodyaches, nausea/vomiting. Pt states he thinks it may be a rat bite as he lives in the residential and has seen rats in the residential. Past Medical History Vital Signs: Last Vital Signs Temp 98.2 F 09/08/18 15:14 Pulse 72 09/08/18 15:14 Resp 18 09/08/18 15:14 BP 108/61 09/08/18 15:14 Pulse Ox 100 09/08/18 15:14 - Medical History PMH: HIV, HTN Denies: Chronic Kidney Disease - Surgical History Surgical History: No Surg Hx - Family History Family History: States: Unknown Family Hx - Social History Current smoker - smoking cessation education provided: No Ex-Smoker (has not smoked in the last 12 months): No Alcohol: None Drugs: Denies - Immunization History Hx Tetanus Toxoid Vaccination: No Hx Influenza Vaccination: No Hx Pneumococcal Vaccination: No - Home Medications Home Medications: Ambulatory Orders Medication Instructions Recorded Lisinopril [Zestril] 10 mg PO DAILY 04/05/17 Meloxicam [Mobic] 15 mg PO DAILY 04/05/17 Omeprazole 40 mg PO DAILY 04/05/17 Ciprofloxacin HCl [Cipro] 500 mg PO BID #20 tab 05/03/17 Metronidazole [Flagyl] 500 mg PO TID #30 tablet 05/03/17 Ciprofloxacin HCl [Cipro] 500 mg PO BID 7 Days tablet 10/09/17 Albuterol Sulfate [Proair Hfa] 0.09 mg IH Q6H PRN #2 inh 10/29/17 Azithromycin [Zithromax] 250 mg PO DAILY 5 Days tab 10/29/17 Benzonatate [Tessalon Perles] 100 mg PO BID PRN 5 Days sgl 10/29/17 Ibuprofen [Motrin] 600 mg PO TID 7 Days tab 10/29/17 Ciprofloxacin 0.3% [Ciloxan 0.3% 1 drop OU QID #1 bottle 10/31/17 Ophth SOLN] traMADol [Ultram] 50 mg PO Q8 #10 tab 01/13/18 Cyclobenzaprine [Cyclobenzaprine 10 mg PO Q8 PRN 7 Days tab 08/25/18 HCl] Meloxicam 15 mg PO DAILY PRN 7 Days tablet 08/25/18 DiphenhydrAMINE [Benadryl] 50 mg PO Q6H PRN #30 cap 09/08/18 Doxycycline Monohydrate 100 mg PO BID #19 tablet 09/08/18 - Allergies Allergies/Adverse Reactions: Allergies Allergy/AdvReac Type Severity Reaction Status Date / Time Fish Containing Products Allergy VOMITING Verified 09/08/18 11:44 seafood Allergy VOMITING Uncoded 10/31/17 22:24 Review of Systems Constitutional: Positive for: Chills. Negative for: Fever, Sweats, Weakness, Malaise Eyes: Positive for: Pain ENT: Negative for: Ear Pain, Ear Discharge, Mouth Swelling, Throat Swelling Cardiovascular: Negative for: Chest Pain, Palpitations Respiratory: Negative for: Cough, Shortness of Breath, SOB with Exertion Gastrointestinal: Negative for: Nausea, Vomiting, Abdominal Pain Skin: Positive for: Rash Neurological: Negative for: Weakness Physical Exam - Reviewed Nursing Documentation Reviewed: Yes Vital Signs Reviewed: Yes - Physical Exam Appears: Positive for: Well, Non-toxic, No Acute Distress Head Exam: Positive for: ATRAUMATIC, NORMAL INSPECTION, NORMOCEPHALIC Skin: Positive for: Rash (scabbed like, raised lesions to the neck with erythematous surrondings, papular lesions noted to left shoulder with scanned center. pt denies lesion ever being fluid filled or herpetic in nature. lesions are dry. small lesions to the chest are also erythematous with streaks noted to chest. ) Eye Exam: Positive for: EOMI, Normal appearance, PERRL ENT: Positive for: Normal ENT Inspection Neck: Positive for: Normal, Supple, Pain On Movement Of Neck (tender left anterior cervical lymphadenopathy noted. ) Cardiovascular/Chest: Positive for: Regular Rate, Rhythm Respiratory: Positive for: CNT, Normal Breath Sounds Gastrointestinal/Abdominal: Positive for: Normal Exam, Soft Back: Positive for: Normal Inspection Extremity: Positive for: Normal ROM Neurological/Psych: Positive for: Awake, Alert, Normal Tone, Oriented - Laboratory Results Result Diagrams: 09/08/18 13:00 09/08/18 13:00 Lab Results: Total Bilirubin 0.7 mg/dl (0.2-1.3) 09/08/18 13:00 AST 55 U/L (17-59) 09/08/18 13:00 ALT 42 U/L (21-72) 09/08/18 13:00 Alkaline Phosphatase 57 U/L (38-126) 09/08/18 13:00 Total Protein 8.4 G/DL (6.3-8.2) H 09/08/18 13:00 Albumin 4.4 g/dL (3.5-5.0) 09/08/18 13:00 Globulin 3.9 gm/dL (2.2-3.9) 09/08/18 13:00 Albumin/Globulin Ratio 1.1 (1.0-2.1) 09/08/18 13:00 - ECG O2 Sat by Pulse Oximetry: 100 - Progress ED Course And Treament: CBC CMP BLOOD CULTURE X2 DOXYCYLCLINE 100MG 15:00- PT RE-EVALUATED AT THIS TIME. PT STATES HE FEELS BETTER. CLINICAL FINDINGS DISCUSSED WITH PATIENT. PT DEMONSTRATED PICTURE OF HERPETIC RASH PT DENIES RASH EVER LOOKING LIKE PRESENTATION OF HERPETIC RASH. APPOINTMENT SET UP WITH [facility] FOR SEPTEMBER 14, 2018 AT 1520. PT ALSO ENCOURAGED TO RETURN TO ED ON TuesdayAugust FOR WOUND CHECK. PT STATES HE HAS AN APPOINTMENT ON TUESDAY WITH DR. SANTOS WELL. PT REPORTS HE WILL GO TO APPOINTMENT ON TUESDAY. PT GIVEN RETURN TO ED PRECAUTIONS. RX GIVEN FOR DOXYCYCLINE 100MG PO Q12H FOR 10 DAYS, BENADRYL 50MG FOR ITCHINESS. PT VERBALIZED UNDERSTANDING. Re-evaluation Time: 15:20 Condition: Re-examined, Improving,but remains with symptoms Disposition - Clinical Impression Clinical Impression: Rash, Cellulitis - Patient ED Disposition Is Patient to be Admitted: No Counseled Patient/Family Regarding: Diagnosis, Need For Followup, Rx Given - Disposition Referrals: [facility] [Outside] Disposition: Routine/Home Disposition Time: 15:20 Condition: GOOD Additional Instructions: Return to ED for wound check on Tuesday09/10/2018. Follow-up appointment at [facility] on 09/14/2018 at 3:20pm with Dr. Aguillon Prescriptions: DiphenhydrAMINE [Benadryl] 50 mg PO Q6H PRN #30 cap PRN Reason: Itching / Pruritus Doxycycline Monohydrate 100 mg PO BID #19 tablet Instructions: Skin Rash (DC), Cellulitis (Skin Infection), Adult (DC) Forms: [facility] (Sami) Print Language: FRISIAN - POA Present On Arrival: None
[2018-09-08 16:48] VITALS: BP 103/52; PULSE 75; TEMP 98.6
== END 2018-09-08 16:47 | disposition home or self-care (01) ==
LOC: H.ER 10:34
DX: R21 Rash and other nonspecific skin eruption (principal); L03.90 Cellulitis, unspecified; I10 Essential (primary) hypertension
CPT/HCPCS: 80053; 85025; 87040; 96372; 96374; 96376; 99283; J1200; J1885